=== PATIENT | male | born 1955 | race Caucasian/White ===

== ENCOUNTER 2017-09-24 12:26 | Inpatient (IN) | payer OTHER ==
[2017-09-24 13:56] VITALS: BMI 24.9
--- NOTE | 2017-09-24 14:19 | HP ---
Admission ROS [facility] - [facility] Chief Complaint: i want to go to rehab Allergies/Adverse Reactions: Allergies Allergy/AdvReac Type Severity Reaction Status Date / Time No Known Allergies Allergy Verified 09/24/17 14:32 History of Present Illness: 61 years old male with long history of alcohol dependence last alcohol consumption 08/23/17 (father ) (mother few months ago) and depression is admitted to rehab Exam Limitations: No Limitations - Ebola screening Have you traveled outside of the country in the last 21 days: No Have you had contact with anyone from an Ebola affected area: No Have you been sick,other than usual withdrawal symptoms: No Do you have a fever: No - Review of Systems Constitutional: Loss of Appetite, Unintentional Wgt. Loss, Unexplained wgt Loss EENT: reports: Blurred Vision (eye glasses) Respiratory: reports: SOB with Exertion Cardiac: reports: Other (tia 2016) GI: reports: Poor Fluid Intake, Indigestion : reports: No Symptoms Reported Musculoskeletal: reports: No Symptoms Reported Integumentary: reports: No Symptoms Reported Neuro: reports: No Symptoms reported Endocrine: reports: No Symptoms Reported Hematology: reports: No Symptoms Reported Psychiatric: reports: Judgement Intact, Orientated x3, Anxious, Depressed Other Systems: Reviewed and Negative Patient History - Patient Medical History Hx Anemia: No Hx Asthma: Yes Hx Chronic Obstructive Pulmonary Disease (COPD): Yes Hx Cancer: No Hx Cardiac Disorders: No Hx Congestive Heart Failure: No Hx Hypertension: No Hx Hypercholesterolemia: No Hx Pacemaker: No HX Cerebrovascular Accident: No Hx Seizures: No Hx Dementia: No Hx Diabetes: No Hx Gastrointestinal Disorders: No Hx Liver Disease: No Hx Genitourinary Disorders: No Hx Sexually Transmitted Disorders: No Hx Renal Disease (ESRD): No Hx Thyroid Disease: No Hx Human Immunodeficiency Virus (HIV): No Hx Hepatitis C: Yes Hx Depression: Yes Hx Suicide Attempt: No Hx Bipolar Disorder: No Hx Schizophrenia: No - Patient Surgical History Past Surgical History: Yes Hx Neurologic Surgery: No Hx Cataract Extraction: No Hx Cardiac Surgery: No Hx Lung Surgery: No Hx Breast Surgery: No Hx Breast Biopsy: No Hx Abdominal Surgery: No Hx Appendectomy: No Hx Cholecystectomy: No Hx Genitourinary Surgery: No Hx Orthopedic Surgery: Yes (sacrum 1999) Other Surgical History: right ankle 2006 Anesthesia Reaction: No - PPD History Previous Implant?: Yes Documented Results: Negative w/o proof Implanted On Prior [facility] Admission?: No PPD to be Administered?: Yes - Smoking Cessation Smoking history: Former smoker Have you smoked in the past 12 months: No Hx Chewing Tobacco Use: No Initiated information on smoking cessation: No - Substance & Tx. History Hx Alcohol Use: Yes Hx Substance Use: No Substance Use Type: Alcohol Hx Substance Use Treatment: No - Substances Abused Alcohol Route: Oral Frequency: Daily Amount used: myranda roth Age of first use: 17 Date of Last Use: 08/23/17 Family Disease History - Family Disease History Family Disease History: Heart Disease: Father (), Other: Father, Mother () Admission Physical Exam [facility] - Vital Signs Vital Signs: Vital Signs - 24 hr 09/24/17 13:53 Temperature 96.4 F L Pulse Rate 69 Respiratory 20 Rate Blood Pressure 154/93 - Physical General Appearance: Yes: No Apparent Distress, Appropriately Dressed, Thin HEENTM: Yes: Hearing grossly Normal, Normal ENT Inspection, Normocephalic, Normal Voice Respiratory: Yes: Chest Non-Tender, No Respiratory Distress, No Accessory Muscle Use, Wheezing, Hyperresonant Neck: Yes: Supple, Trachea in good position Breast: Yes: Breasts Symetrical Cardiology: Yes: Within Normal Limits Abdominal: Yes: Non Tender, Soft Genitourinary: Yes: Within Normal Limits Back: Yes: Within Normal Limits, Surgical Scar Musculoskeletal: Yes: full range of Motion, Gait Steady Extremities: Yes: Normal Inspection, Normal Range of Motion, Non-Tender Neurological: Yes: Fully Oriented, Alert, Motor Strength 5/5, Normal Response, Depressed Affect Integumentary: Yes: Warm, Rash (fungal feet) Lymphatic: Yes: Within Normal Limits - Diagnostic (1) Alcohol dependence with uncomplicated withdrawal Current Visit: Yes Status: Acute (2) Hepatitis C Current Visit: Yes Status: Resolved Qualifiers: Viral hepatitis chronicity: unspecified Hepatic coma status: without hepatic coma Qualified Code(s): B19.20 - Unspecified viral hepatitis C without hepatic coma Comment: treated (3) GERD (gastroesophageal reflux disease) Current Visit: Yes Status: Chronic Qualifiers: Esophagitis presence: without esophagitis Qualified Code(s): K21.9 - Gastro -esophageal reflux disease without esophagitis (4) TIA (transient ischemic attack) Current Visit: Yes Status: Resolved Qualifiers: Transient cerebral ischemia type: amaurosis fugax Qualified Code(s): G45.3 - Amaurosis fugax (5) Weight loss Current Visit: Yes Status: Acute (6) Depression (emotion) Current Visit: Yes Status: Suspected Qualifiers: Depression Type: dysthymia Qualified Code(s): F34.1 - Dysthymic disorder (7) Fungal toenail infection Current Visit: Yes Status: Acute (8) Sacral fracture Current Visit: Yes Status: Resolved Qualifiers: Encounter type: sequela Zone of sacrum fracture: unspecified portion of sacrum Fracture type: open Qualified Code(s): S32.10XS - Unspecified fracture of sacrum, sequela (9) Dry skin dermatitis Current Visit: Yes Status: Chronic Cleared for Admission [facility] - Detox or Rehab [facility] Level of Care: Observation Bed Detox Regimen/Protocol: Not Applicable Claeared for Rehab Admission: Yes [facility] Breath Alcohol Content Breath Alcohol Content: 0 Urine Drug Screen - Results Drug Screen Negative: Yes Inpatient Rehab Admission - Initial Determination Are CD services needed?: Yes Free of communicable disease: Yes Not in need of hospitalization: Yes - Rehab Admission Criteria Previous failed treatment: Yes Poor recovery environment: Yes Comorbidities: Yes Lacks judgement: No Patient is meeting Inpatient Rehab admission criteria:: Yes
[2017-09-24] MEDS ORDERED: P-EPHED 60MG/TRIPROLIDI 2.5MG TABLET PO PRN (14:48)
[2017-09-24] MEDS ORDERED: MAGNESIUM CITRATE 300 ML BOTTLE PO PRN (14:48)
[2017-09-24] MEDS ORDERED: MAGNESIUM HYDROX 2400MG/30ML ORAL SUSPENSION 30 ML CUP PO PRN (14:48)
[2017-09-24] MEDS ORDERED: MAG HYDROX/AL HYDROX/SIMETH 30 ML UNIT-DOSE CUP PO PRN (14:48)
[2017-09-24] MEDS ORDERED: MENTHOL/PHENOL 1 EACH UD MM PRN (14:48)
[2017-09-24] MEDS ORDERED: ACETAMINOPHEN 325 MG TABLET (FP) PO PRN (14:48)
[2017-09-24] MEDS ORDERED: guaiFENesin/D-METHORPHAN HB 10 ML UNIT-DOSE CUPS PO PRN (14:48)
[2017-09-24] MEDS ORDERED: LOPERAMIDE HCL 2 MG CAPSULE PO PRN (14:48)
[2017-09-24] MEDS ORDERED: metroNIDAZOLE 0.75% TOPICAL GEL 45 GM TUBE TP SCH (15:00)
[2017-09-24] MEDS ORDERED: TUBERCULIN PPD 5 TU/0.1ML VIAL ID ONE (20:46)
[2017-09-24] MEDS: BUDESONIDE/FORMETEROL FUMARATE 80/4.5 mcg INHALER IH SCH (21:11)
[2017-09-24] MEDS: metroNIDAZOLE 0.75% TOPICAL GEL 45 GM TUBE TP SCH (21:11)
[2017-09-24] MEDS: RANITIDINE HCL 150 MG TABLET (FP) PO SCH (21:12)
[2017-09-24] MEDS: THIAMINE HCL 100 MG TABLET (FP) PO SCH (21:12)
[2017-09-24] MEDS ORDERED: TALC 70.9 GM BTL TP SCH (22:00)
[2017-09-24 23:25] LABS: URINE APPEARANCE CLEAR; URINE BILIRUBIN NEGATIVE (NEGATIVE); URINE BLOOD NEGATIVE (NEGATIVE); URINE COLOR YELLOW; URINE GLUCOSE (UA) NEGATIVE (NEGATIVE); URINE KETONE NEGATIVE (NEGATIVE); URINE LEUK ESTERASE NEGATIVE (NEGATIVE); URINE NITRITE NEGATIVE (NEGATIVE); URINE PROTEIN NEGATIVE (NEGATIVE); URINE UROBILINOGEN NEGATIVE mg/dL (0.2-1.0)
--- NOTE | 2017-09-25 06:22 | HP ---
Psychiatrist Admission - Data Date of interview: 09/25/17 Admission source: Self-referred via a friend Identifying data: This is the first [facility] admission for this 61 years old single [place] male, unemployed on public assistance, homeless Medical History: Significant for COPD, TIA and history of treatment for hepatitis C and orthosurgery for fractures of sacrum in 1999 & right ankle in 2006. Psychiatric History: Denies history of previous psychiatric treatment Physical/Sexual Abuse/Trauma History: Denies history of emotional, physical or sexual abuse as well as DV relationship Additional Comment: Reports history of one preious arrest on charges of DWI in 1995 Vital Signs: Vital Signs - 24 hr 09/24/17 09/25/17 13:53 00:30 Temperature 96.4 F L Pulse Rate 69 Respiratory 20 16 Rate Blood Pressure 154/93 Allergies/Adverse Reactions: Allergies Allergy/AdvReac Type Severity Reaction Status Date / Time No Known Allergies Allergy Verified 09/24/17 14:32 Date of last physical exam: 09/24/17 Concur with the findings of this exam: Yes - Substance Abuse/Tx History Hx Alcohol Use: Yes Hx Substance Use: No Substance Use Type: Alcohol (Started drinking alcohol at age 17, consumes one quart of whiskey(agustin) daily. Last drank on 08/23/17) Hx Substance Use Treatment: No Mental Status Exam - Mental Status Exam Alert and Oriented to: Time, Person Cognitive Function: Fair Patient Appearance: Disheveled Mood: Hopeful, Euthymic Affect: Appropriate Patient Behavior: Cooperative Speech Pattern: Clear Voice Loudness: Normal Thought Process: Intact, Goal Oriented Thought Disorder: Not Present Hallucinations: Denies Suicidal Ideation: Denies Homicidal Ideation: Denies Insight/Judgement: Fair Sleep: Poorly Appetite: Good Muscle strength/Tone: Normal Gait/Station: Normal Psychiatric Findings - Problem List ([place] 1, 2,3) (1) Alcohol dependence Current Visit: Yes Status: Acute (2) Alcohol-induced sleep disorder Current Visit: Yes Status: Acute (3) Fungal toenail infection Current Visit: Yes Status: Acute (4) Dry skin dermatitis Current Visit: Yes Status: Chronic (5) GERD (gastroesophageal reflux disease) Current Visit: Yes Status: Chronic Qualifiers: Esophagitis presence: without esophagitis Qualified Code(s): K21.9 - Gastro -esophageal reflux disease without esophagitis (6) Hepatitis C Current Visit: Yes Status: Resolved Qualifiers: Viral hepatitis chronicity: unspecified Hepatic coma status: without hepatic coma Qualified Code(s): B19.20 - Unspecified viral hepatitis C without hepatic coma Comment: treated (7) Sacral fracture Current Visit: Yes Status: Resolved Qualifiers: Encounter type: sequela Zone of sacrum fracture: unspecified portion of sacrum Fracture type: open Qualified Code(s): S32.10XS - Unspecified fracture of sacrum, sequela (8) TIA (transient ischemic attack) Current Visit: Yes Status: Resolved Qualifiers: Transient cerebral ischemia type: amaurosis fugax Qualified Code(s): G45.3 - Amaurosis fugax - Initial Treatment Plan Initial Treatment Plan: 1) Start Belsomra 10 mg po HS prn for insomnia. 2) Monitor progress
[2017-09-25] MEDS: ASPIRIN COATED 81 MG TABLET.EC PO SCH (09:45)
[2017-09-25] MEDS: RANITIDINE HCL 150 MG TABLET (FP) PO SCH ×2 (09:45→21:18)
[2017-09-25] MEDS: PRENATAL VITAMINS W/ FOLIC ACID TABLET (FP) PO SCH (09:45)
[2017-09-25] MEDS: BUDESONIDE/FORMETEROL FUMARATE 80/4.5 mcg INHALER IH SCH ×2 (09:46→21:18)
[2017-09-25] MEDS: metroNIDAZOLE 0.75% TOPICAL GEL 45 GM TUBE TP SCH (09:46)
[2017-09-25 10:31] LABS: HEMATOCRIT 36.1 % (35.4-49); MCH 31.7 pg (25.7-33.7); MCHC 33.3 g/dl (32.0-35.9); MEAN PLT VOLUME 9.3 fl (7.5-11.1); PLATELET COUNT 261 K/MM3 (134-434); RDW 13.4 % (11.9-15.9); WHITE BLOOD COUNT 4.7 K/mm3 (4.0-10.0)
[2017-09-25 10:33] LABS: CHLORIDE 103 mmol/L (98-107); POTASSIUM 4.2 mmol/L (3.5-5.1); SODIUM 140 mmol/L (136-145)
--- NOTE | 2017-09-25 10:47 | EKG ---
Test Reason : Blood Pressure : / mmHG Vent. Rate : 070 BPM Atrial Rate : 070 BPM P-R Int : 176 ms QRS Dur : 098 ms QT Int : 398 ms P-R-T Axes : 042 061 041 degrees QTc Int : 429 ms NORMAL SINUS RHYTHM NORMAL ECG WHEN COMPARED WITH ECG OF 24-SEP-2017 21:19, T WAVE INVERSION NO LONGER EVIDENT IN ANTERIOR LEADS QT HAS SHORTENED Confirmed by David Charles ([id number]) on 09/25/2017 10:46:47 AM Referred By: Confirmed By:David Charles
[2017-09-25 10:52] LABS: ALBUMIN 3.6 g/dl (3.4-5.0); ALK PHOS 80 U/L (45-117); ANION GAP 9 (8-16); BILIRUBIN,TOTAL 0.4 mg/dL (0.2-1.0); BLOOD UREA NITROGEN 19 mg/dL (7-18); CALCIUM 8.7 mg/dL (8.5-10.1); CO2 28 mmol/L (21-32); GLUCOSE,RANDOM 104 mg/dL (74-106); SGOT/AST 29 U/L (15-37); SGPT/ALT 28 U/L (12-78); TOT PROT 6.2 g/dl (6.4-8.2)
[2017-09-25] MEDS: THIAMINE HCL 100 MG TABLET (FP) PO SCH (21:18)
[2017-09-26] MEDS: ASPIRIN COATED 81 MG TABLET.EC PO SCH (10:28)
[2017-09-26] MEDS: metroNIDAZOLE 0.75% TOPICAL GEL 45 GM TUBE TP SCH (10:28)
[2017-09-26] MEDS: PRENATAL VITAMINS W/ FOLIC ACID TABLET (FP) PO SCH (10:28)
[2017-09-26] MEDS: BUDESONIDE/FORMETEROL FUMARATE 80/4.5 mcg INHALER IH SCH ×2 (10:29→21:13)
[2017-09-26] MEDS: RANITIDINE HCL 150 MG TABLET (FP) PO SCH ×2 (10:29→21:14)
--- NOTE | 2017-09-26 10:55 | EKG ---
Test Reason : Blood Pressure : / mmHG Vent. Rate : 072 BPM Atrial Rate : 072 BPM P-R Int : 176 ms QRS Dur : 102 ms QT Int : 448 ms P-R-T Axes : 090 063 059 degrees QTc Int : 490 ms NORMAL SINUS RHYTHM PROLONGED QT ABNORMAL ECG NO PREVIOUS ECGS AVAILABLE Confirmed by TIFFANIE CHAUHAN, MACY ([id number]) on 09/26/2017 10:54:55 AM Referred By: Confirmed By:MACY MORENO MD
[2017-09-26] MEDS: THIAMINE HCL 100 MG TABLET (FP) PO SCH (21:13)
[2017-09-26] MEDS: SUVOREXANT 10 MG TABLET PO PRN (21:13)
[2017-09-26] MEDS ORDERED: TOLNAFTATE 1% POWDER 45 GM POW TP SCH (22:00)
[2017-09-26] MEDS: TOLNAFTATE 1% CREAM 15 GM TUBE TP SCH (22:25)
[2017-09-27] MEDS: ASPIRIN COATED 81 MG TABLET.EC PO SCH (09:35)
[2017-09-27] MEDS: RANITIDINE HCL 150 MG TABLET (FP) PO SCH ×2 (09:35→21:30)
[2017-09-27] MEDS: PRENATAL VITAMINS W/ FOLIC ACID TABLET (FP) PO SCH (09:35)
[2017-09-27] MEDS: BUDESONIDE/FORMETEROL FUMARATE 80/4.5 mcg INHALER IH SCH ×2 (09:35→21:31)
[2017-09-27] MEDS: metroNIDAZOLE 0.75% TOPICAL GEL 45 GM TUBE TP SCH (09:36)
[2017-09-27] MEDS: TOLNAFTATE 1% CREAM 15 GM TUBE TP SCH ×2 (09:36→21:30)
[2017-09-27] MEDS: THIAMINE HCL 100 MG TABLET (FP) PO SCH (21:30)
[2017-09-28] MEDS: PRENATAL VITAMINS W/ FOLIC ACID TABLET (FP) PO SCH (09:37)
[2017-09-28] MEDS: BUDESONIDE/FORMETEROL FUMARATE 80/4.5 mcg INHALER IH SCH ×2 (09:38→21:17)
[2017-09-28] MEDS: ASPIRIN COATED 81 MG TABLET.EC PO SCH (09:38)
[2017-09-28] MEDS: RANITIDINE HCL 150 MG TABLET (FP) PO SCH ×2 (09:38→21:19)
[2017-09-28] MEDS: metroNIDAZOLE 0.75% TOPICAL GEL 45 GM TUBE TP SCH (09:39)
[2017-09-28] MEDS: TOLNAFTATE 1% CREAM 15 GM TUBE TP SCH ×2 (09:40→21:18)
[2017-09-28] MEDS ORDERED: PT OWN MED DRAWER 7, Y5N ONE ×2 (09:41→19:58)
[2017-09-28] MEDS: THIAMINE HCL 100 MG TABLET (FP) PO SCH (21:19)
[2017-09-28] MEDS: SUVOREXANT 10 MG TABLET PO PRN (21:19)
[2017-09-28] MEDS ORDERED: SUVOREXANT 10 MG TABLET PO PRN (22:00)
[2017-09-29] MEDS ORDERED: PT OWN MED DRAWER 7, Y5N ONE ×2 (08:35→19:12)
[2017-09-29] MEDS: BUDESONIDE/FORMETEROL FUMARATE 80/4.5 mcg INHALER IH SCH ×2 (09:32→21:38)
[2017-09-29] MEDS: RANITIDINE HCL 150 MG TABLET (FP) PO SCH ×2 (09:32→21:38)
[2017-09-29] MEDS: PRENATAL VITAMINS W/ FOLIC ACID TABLET (FP) PO SCH (09:32)
[2017-09-29] MEDS: ASPIRIN COATED 81 MG TABLET.EC PO SCH (09:32)
[2017-09-29] MEDS: TOLNAFTATE 1% CREAM 15 GM TUBE TP SCH ×2 (09:33→21:38)
[2017-09-29] MEDS: metroNIDAZOLE 0.75% TOPICAL GEL 45 GM TUBE TP SCH (09:33)
[2017-09-29] MEDS: THIAMINE HCL 100 MG TABLET (FP) PO SCH (21:38)
[2017-09-30] MEDS ORDERED: PT OWN MED DRAWER 7, Y5N ONE ×2 (08:19→19:05)
[2017-09-30] MEDS: ASPIRIN COATED 81 MG TABLET.EC PO SCH (09:28)
[2017-09-30] MEDS: BUDESONIDE/FORMETEROL FUMARATE 80/4.5 mcg INHALER IH SCH ×2 (09:28→21:44)
[2017-09-30] MEDS: RANITIDINE HCL 150 MG TABLET (FP) PO SCH ×2 (09:28→21:45)
[2017-09-30] MEDS: PRENATAL VITAMINS W/ FOLIC ACID TABLET (FP) PO SCH (09:28)
[2017-09-30] MEDS: TOLNAFTATE 1% CREAM 15 GM TUBE TP SCH ×2 (09:29→21:45)
[2017-09-30] MEDS: metroNIDAZOLE 0.75% TOPICAL GEL 45 GM TUBE TP SCH (09:30)
[2017-09-30] MEDS: THIAMINE HCL 100 MG TABLET (FP) PO SCH (21:45)
[2017-10-01] MEDS: PRENATAL VITAMINS W/ FOLIC ACID TABLET (FP) PO SCH (09:30)
[2017-10-01] MEDS: ASPIRIN COATED 81 MG TABLET.EC PO SCH (09:30)
[2017-10-01] MEDS: RANITIDINE HCL 150 MG TABLET (FP) PO SCH ×2 (09:30→21:40)
[2017-10-01] MEDS: TOLNAFTATE 1% CREAM 15 GM TUBE TP SCH ×2 (09:32→21:39)
[2017-10-01] MEDS: BUDESONIDE/FORMETEROL FUMARATE 80/4.5 mcg INHALER IH SCH ×2 (09:32→21:38)
[2017-10-01] MEDS: metroNIDAZOLE 0.75% TOPICAL GEL 45 GM TUBE TP SCH (09:32)
[2017-10-01] MEDS ORDERED: PT OWN MED DRAWER 7, Y5N ONE ×4 (09:33→22:08)
--- NOTE | 2017-10-01 14:27 | PN ---
S Progress Note Note: Patient requesting Belsomra 10mg PO HS PRN to be discontinued as he does not need it. Medication discontinued. Pt. made aware.
--- NOTE | 2017-10-01 15:01 | PN ---
[facility] Progress Note Note: Patient reports chronic tinea pedis. Patient Aox 3, ambulating in no apparent distress. Plan: Patient advisde to increase fluids and keep skin clean and dry Ciclopirox .77% order, which was prescribed by PCP outpatient Continue to monitor
[2017-10-01] MEDS ORDERED: PATIENT'S OWN MEDICATION (NON-FORMULARY) (Terbinafine Hcl [Lamisil] 250 MG) PO SCH (17:00)
[2017-10-01] MEDS: TOLNAFTATE 1% POWDER 45 GM POW TP SCH (17:31)
[2017-10-01] MEDS: THIAMINE HCL 100 MG TABLET (FP) PO SCH (21:40)
[2017-10-01] MEDS ORDERED: SUVOREXANT 10 MG TABLET PO PRN (22:00)
[2017-10-02] MEDS ORDERED: CICLOPIROX OLAMINE TP SCH (10:00)
[2017-10-02] MEDS: PRENATAL VITAMINS W/ FOLIC ACID TABLET (FP) PO SCH (10:12)
[2017-10-02] MEDS: TOLNAFTATE 1% CREAM 15 GM TUBE TP SCH ×2 (10:13→21:12)
[2017-10-02] MEDS: RANITIDINE HCL 150 MG TABLET (FP) PO SCH ×2 (10:13→21:12)
[2017-10-02] MEDS: BUDESONIDE/FORMETEROL FUMARATE 80/4.5 mcg INHALER IH SCH ×2 (10:13→21:12)
[2017-10-02] MEDS: ASPIRIN COATED 81 MG TABLET.EC PO SCH (10:13)
[2017-10-02] MEDS: metroNIDAZOLE 0.75% TOPICAL GEL 45 GM TUBE TP SCH (10:13)
[2017-10-02] MEDS: TOLNAFTATE 1% POWDER 45 GM POW TP SCH (10:15)
[2017-10-02] MEDS ORDERED: PT OWN MED DRAWER 7, Y5N ONE ×3 (10:16→22:35)
[2017-10-02] MEDS: THIAMINE HCL 100 MG TABLET (FP) PO SCH (21:12)
[2017-10-03] MEDS: RANITIDINE HCL 150 MG TABLET (FP) PO SCH ×2 (09:29→21:04)
[2017-10-03] MEDS: PRENATAL VITAMINS W/ FOLIC ACID TABLET (FP) PO SCH (09:29)
[2017-10-03] MEDS: ASPIRIN COATED 81 MG TABLET.EC PO SCH (09:29)
[2017-10-03] MEDS: TOLNAFTATE 1% CREAM 15 GM TUBE TP SCH ×2 (09:30→21:04)
[2017-10-03] MEDS: BUDESONIDE/FORMETEROL FUMARATE 80/4.5 mcg INHALER IH SCH ×2 (09:30→21:04)
[2017-10-03] MEDS: metroNIDAZOLE 0.75% TOPICAL GEL 45 GM TUBE TP SCH (09:30)
[2017-10-03] MEDS: TOLNAFTATE 1% POWDER 45 GM POW TP SCH (09:31)
[2017-10-03] MEDS ORDERED: PT OWN MED DRAWER 7, Y5N ONE ×2 (09:33→19:04)
[2017-10-03] MEDS: THIAMINE HCL 100 MG TABLET (FP) PO SCH (21:04)
[2017-10-04] MEDS: RANITIDINE HCL 150 MG TABLET (FP) PO SCH ×2 (09:32→21:20)
[2017-10-04] MEDS: ASPIRIN COATED 81 MG TABLET.EC PO SCH (09:32)
[2017-10-04] MEDS: PRENATAL VITAMINS W/ FOLIC ACID TABLET (FP) PO SCH (09:32)
[2017-10-04] MEDS: TOLNAFTATE 1% CREAM 15 GM TUBE TP SCH ×2 (09:33→21:21)
[2017-10-04] MEDS: TOLNAFTATE 1% POWDER 45 GM POW TP SCH (09:33)
[2017-10-04] MEDS: BUDESONIDE/FORMETEROL FUMARATE 80/4.5 mcg INHALER IH SCH ×2 (09:33→21:20)
[2017-10-04] MEDS ORDERED: PT OWN MED DRAWER 7, Y5N ONE ×3 (09:34→22:32)
[2017-10-04] MEDS: metroNIDAZOLE 0.75% TOPICAL GEL 45 GM TUBE TP SCH (09:34)
[2017-10-04] MEDS: THIAMINE HCL 100 MG TABLET (FP) PO SCH (21:20)
[2017-10-05] MEDS ORDERED: PT OWN MED DRAWER 7, Y5N ONE ×3 (08:46→22:01)
[2017-10-05] MEDS: BUDESONIDE/FORMETEROL FUMARATE 80/4.5 mcg INHALER IH SCH ×2 (09:48→21:33)
[2017-10-05] MEDS: TOLNAFTATE 1% CREAM 15 GM TUBE TP SCH ×2 (09:48→21:34)
[2017-10-05] MEDS: ASPIRIN COATED 81 MG TABLET.EC PO SCH (09:49)
[2017-10-05] MEDS: metroNIDAZOLE 0.75% TOPICAL GEL 45 GM TUBE TP SCH (09:49)
[2017-10-05] MEDS: PRENATAL VITAMINS W/ FOLIC ACID TABLET (FP) PO SCH (09:49)
[2017-10-05] MEDS: RANITIDINE HCL 150 MG TABLET (FP) PO SCH ×2 (09:49→21:34)
[2017-10-05] MEDS: TOLNAFTATE 1% POWDER 45 GM POW TP SCH (09:49)
[2017-10-05] MEDS: THIAMINE HCL 100 MG TABLET (FP) PO SCH (21:34)
[2017-10-06] MEDS: RANITIDINE HCL 150 MG TABLET (FP) PO SCH ×2 (09:35→21:05)
[2017-10-06] MEDS: PRENATAL VITAMINS W/ FOLIC ACID TABLET (FP) PO SCH (09:35)
[2017-10-06] MEDS: ASPIRIN COATED 81 MG TABLET.EC PO SCH (09:35)
[2017-10-06] MEDS: BUDESONIDE/FORMETEROL FUMARATE 80/4.5 mcg INHALER IH SCH ×2 (09:36→21:06)
[2017-10-06] MEDS: metroNIDAZOLE 0.75% TOPICAL GEL 45 GM TUBE TP SCH (09:36)
[2017-10-06] MEDS: TOLNAFTATE 1% POWDER 45 GM POW TP SCH (09:37)
[2017-10-06] MEDS: TOLNAFTATE 1% CREAM 15 GM TUBE TP SCH ×2 (09:37→21:06)
[2017-10-06] MEDS ORDERED: PT OWN MED DRAWER 7, Y5N ONE ×2 (09:38→19:35)
[2017-10-06] MEDS: THIAMINE HCL 100 MG TABLET (FP) PO SCH (21:05)
[2017-10-07] MEDS: BUDESONIDE/FORMETEROL FUMARATE 80/4.5 mcg INHALER IH SCH ×2 (09:27→22:18)
[2017-10-07] MEDS: PRENATAL VITAMINS W/ FOLIC ACID TABLET (FP) PO SCH (09:27)
[2017-10-07] MEDS: RANITIDINE HCL 150 MG TABLET (FP) PO SCH ×2 (09:27→22:19)
[2017-10-07] MEDS: ASPIRIN COATED 81 MG TABLET.EC PO SCH (09:27)
[2017-10-07] MEDS: metroNIDAZOLE 0.75% TOPICAL GEL 45 GM TUBE TP SCH (09:28)
[2017-10-07] MEDS: TOLNAFTATE 1% CREAM 15 GM TUBE TP SCH ×2 (09:28→22:21)
[2017-10-07] MEDS ORDERED: PT OWN MED DRAWER 7, Y5N ONE ×4 (09:30→22:32)
[2017-10-07] MEDS: TOLNAFTATE 1% POWDER 45 GM POW TP SCH (09:30)
[2017-10-07] MEDS: THIAMINE HCL 100 MG TABLET (FP) PO SCH (22:19)
[2017-10-08] MEDS: TOLNAFTATE 1% POWDER 45 GM POW TP SCH (09:51)
[2017-10-08] MEDS: metroNIDAZOLE 0.75% TOPICAL GEL 45 GM TUBE TP SCH (09:51)
[2017-10-08] MEDS: BUDESONIDE/FORMETEROL FUMARATE 80/4.5 mcg INHALER IH SCH ×2 (09:51→21:07)
[2017-10-08] MEDS: ASPIRIN COATED 81 MG TABLET.EC PO SCH (09:52)
[2017-10-08] MEDS: RANITIDINE HCL 150 MG TABLET (FP) PO SCH ×2 (09:52→21:08)
[2017-10-08] MEDS: TOLNAFTATE 1% CREAM 15 GM TUBE TP SCH ×2 (09:52→21:07)
[2017-10-08] MEDS: PRENATAL VITAMINS W/ FOLIC ACID TABLET (FP) PO SCH (09:52)
[2017-10-08] MEDS ORDERED: PT OWN MED DRAWER 7, Y5N ONE (19:24)
[2017-10-08] MEDS: THIAMINE HCL 100 MG TABLET (FP) PO SCH (21:08)
[2017-10-09] MEDS ORDERED: PT OWN MED DRAWER 7, Y5N ONE (08:38)
[2017-10-09] MEDS: TOLNAFTATE 1% CREAM 15 GM TUBE TP SCH ×2 (09:31→21:55)
[2017-10-09] MEDS: PRENATAL VITAMINS W/ FOLIC ACID TABLET (FP) PO SCH (09:31)
[2017-10-09] MEDS: ASPIRIN COATED 81 MG TABLET.EC PO SCH (09:31)
[2017-10-09] MEDS: BUDESONIDE/FORMETEROL FUMARATE 80/4.5 mcg INHALER IH SCH ×2 (09:31→21:55)
[2017-10-09] MEDS: TOLNAFTATE 1% POWDER 45 GM POW TP SCH (09:31)
[2017-10-09] MEDS: RANITIDINE HCL 150 MG TABLET (FP) PO SCH ×2 (09:32→21:56)
[2017-10-09] MEDS: metroNIDAZOLE 0.75% TOPICAL GEL 45 GM TUBE TP SCH (09:32)
[2017-10-09] MEDS: THIAMINE HCL 100 MG TABLET (FP) PO SCH (21:55)
[2017-10-10] MEDS: ASPIRIN COATED 81 MG TABLET.EC PO SCH (09:45)
[2017-10-10] MEDS: TOLNAFTATE 1% CREAM 15 GM TUBE TP SCH ×2 (09:45→21:08)
[2017-10-10] MEDS: PRENATAL VITAMINS W/ FOLIC ACID TABLET (FP) PO SCH (09:45)
[2017-10-10] MEDS: metroNIDAZOLE 0.75% TOPICAL GEL 45 GM TUBE TP SCH (09:45)
[2017-10-10] MEDS: TOLNAFTATE 1% POWDER 45 GM POW TP SCH (09:46)
[2017-10-10] MEDS: BUDESONIDE/FORMETEROL FUMARATE 80/4.5 mcg INHALER IH SCH ×2 (09:46→21:06)
[2017-10-10] MEDS: RANITIDINE HCL 150 MG TABLET (FP) PO SCH ×2 (09:46→21:09)
[2017-10-10] MEDS ORDERED: PANTOPRAZOLE 40 MG TABLET (FP) PO SCH (16:00)
[2017-10-10] MEDS: GABAPENTIN 100 MG CAPSULE (FP) PO SCH ×2 (17:02→21:33)
[2017-10-10] MEDS: THIAMINE HCL 100 MG TABLET (FP) PO SCH (21:09)
[2017-10-10] MEDS: NAPROXEN 500 MG TABLET (FP) PO SCH (21:10)
[2017-10-10] MEDS ORDERED: AMITRIPTYLINE HCL 25 MG TABLET (FP) PO SCH (22:00)
[2017-10-11] MEDS: GABAPENTIN 100 MG CAPSULE (FP) PO SCH (06:38)
[2017-10-11] MEDS: RANITIDINE HCL 150 MG TABLET (FP) PO SCH ×2 (09:27→21:59)
[2017-10-11] MEDS: NAPROXEN 500 MG TABLET (FP) PO SCH (09:27)
[2017-10-11] MEDS: TOLNAFTATE 1% CREAM 15 GM TUBE TP SCH ×2 (09:27→22:00)
[2017-10-11] MEDS: BUDESONIDE/FORMETEROL FUMARATE 80/4.5 mcg INHALER IH SCH ×2 (09:27→22:00)
[2017-10-11] MEDS: PRENATAL VITAMINS W/ FOLIC ACID TABLET (FP) PO SCH (09:27)
[2017-10-11] MEDS: ASPIRIN COATED 81 MG TABLET.EC PO SCH (09:27)
[2017-10-11] MEDS: TOLNAFTATE 1% POWDER 45 GM POW TP SCH (09:27)
[2017-10-11] MEDS: metroNIDAZOLE 0.75% TOPICAL GEL 45 GM TUBE TP SCH (09:28)
[2017-10-11] MEDS ORDERED: NAPROXEN 500 MG TABLET (FP) PO PRN (13:50)
--- NOTE | 2017-10-11 13:53 | PN ---
[facility] Progress Note (SOAP) Subjective: sharp stabbing left shoulder pain, does not want to take neuropathic medication. not chroniic only occurs occasionally Objective: 10/11/17 13:52 Vital Signs - 24 hr 10/11/17 10/11/17 10/11/17 00:30 03:30 06:46 Temperature 97.3 F L Pulse Rate 64 Respiratory 20 18 18 Rate Blood Pressure 150/88 Laboratory Tests 09/24/17 09/25/17 09/25/17 23:05 05:50 05:50 WBC 4.7 RBC 3.80 L Hgb 12.0 Hct 36.1 MCV 95.0 MCH 31.7 MCHC 33.3 RDW 13.4 Plt Count 261 MPV 9.3 Sodium 140 Potassium 4.2 Chloride 103 Carbon Dioxide 28 Anion Gap 9 BUN 19 H Creatinine 1.0 Creat Clearance w eGFR > 60 Random Glucose 104 Calcium 8.7 Total Bilirubin 0.4 AST 29 ALT 28 Alkaline Phosphatase 80 Total Protein 6.2 L Albumin 3.6 Urine Color Yellow Urine Appearance Clear Urine pH 6.0 Ur Specific [place] 1.019 Urine Protein Negative Urine Glucose (UA) Negative Urine Ketones Negative Urine Blood Negative Urine Nitrite Negative Urine Bilirubin Negative Urine Urobilinogen Negative Ur Leukocyte Esterase Negative RPR Titer HIV 1&2 Antibody Screen HIV P24 Antigen 09/25/17 09/25/17 05:50 05:50 WBC RBC Hgb Hct MCV MCH MCHC RDW Plt Count MPV Sodium Potassium Chloride Carbon Dioxide Anion Gap BUN Creatinine Creat Clearance w eGFR Random Glucose Calcium Total Bilirubin AST ALT Alkaline Phosphatase Total Protein Albumin Urine Color Urine Appearance Urine pH Ur Specific [place] Urine Protein Urine Glucose (UA) Urine Ketones Urine Blood Urine Nitrite Urine Bilirubin Urine Urobilinogen Ur Leukocyte Esterase RPR Titer Nonreactive HIV 1&2 Antibody Screen Negative HIV P24 Antigen Negative Assessment: 10/11/17 13:52 neuropathic l shoulder pain - agress to take prn naprosyn as needed, h/o sacral fx and tia.
[2017-10-11] MEDS: THIAMINE HCL 100 MG TABLET (FP) PO SCH (21:59)
[2017-10-12] MEDS: PRENATAL VITAMINS W/ FOLIC ACID TABLET (FP) PO SCH (09:36)
[2017-10-12] MEDS: RANITIDINE HCL 150 MG TABLET (FP) PO SCH ×2 (09:36→21:17)
[2017-10-12] MEDS: ASPIRIN COATED 81 MG TABLET.EC PO SCH (09:36)
[2017-10-12] MEDS: metroNIDAZOLE 0.75% TOPICAL GEL 45 GM TUBE TP SCH (09:36)
[2017-10-12] MEDS: TOLNAFTATE 1% CREAM 15 GM TUBE TP SCH ×2 (09:36→21:18)
[2017-10-12] MEDS: TOLNAFTATE 1% POWDER 45 GM POW TP SCH (09:36)
[2017-10-12] MEDS: BUDESONIDE/FORMETEROL FUMARATE 80/4.5 mcg INHALER IH SCH ×2 (09:36→21:18)
[2017-10-12] MEDS: THIAMINE HCL 100 MG TABLET (FP) PO SCH (21:17)
[2017-10-12] MEDS ORDERED: PT OWN MED DRAWER 7, Y5N ONE (22:03)
[2017-10-13] MEDS: metroNIDAZOLE 0.75% TOPICAL GEL 45 GM TUBE TP SCH (10:09)
[2017-10-13] MEDS: TOLNAFTATE 1% CREAM 15 GM TUBE TP SCH ×2 (10:09→21:27)
[2017-10-13] MEDS: ASPIRIN COATED 81 MG TABLET.EC PO SCH (10:09)
[2017-10-13] MEDS: TOLNAFTATE 1% POWDER 45 GM POW TP SCH (10:09)
[2017-10-13] MEDS: PRENATAL VITAMINS W/ FOLIC ACID TABLET (FP) PO SCH (10:09)
[2017-10-13] MEDS: BUDESONIDE/FORMETEROL FUMARATE 80/4.5 mcg INHALER IH SCH ×2 (10:09→21:26)
[2017-10-13] MEDS: RANITIDINE HCL 150 MG TABLET (FP) PO SCH ×2 (10:09→21:26)
[2017-10-13] MEDS ORDERED: PT OWN MED DRAWER 7, Y5N ONE (19:23)
[2017-10-13] MEDS: THIAMINE HCL 100 MG TABLET (FP) PO SCH (21:26)
[2017-10-14] MEDS ORDERED: PT OWN MED DRAWER 7, Y5N ONE ×2 (08:37→21:59)
[2017-10-14] MEDS: BUDESONIDE/FORMETEROL FUMARATE 80/4.5 mcg INHALER IH SCH ×2 (10:09→21:56)
[2017-10-14] MEDS: metroNIDAZOLE 0.75% TOPICAL GEL 45 GM TUBE TP SCH (10:09)
[2017-10-14] MEDS: TOLNAFTATE 1% POWDER 45 GM POW TP SCH (10:10)
[2017-10-14] MEDS: TOLNAFTATE 1% CREAM 15 GM TUBE TP SCH ×2 (10:10→21:58)
[2017-10-14] MEDS: ASPIRIN COATED 81 MG TABLET.EC PO SCH (10:11)
[2017-10-14] MEDS: RANITIDINE HCL 150 MG TABLET (FP) PO SCH ×2 (10:11→21:56)
[2017-10-14] MEDS: PRENATAL VITAMINS W/ FOLIC ACID TABLET (FP) PO SCH (10:11)
[2017-10-14] MEDS: THIAMINE HCL 100 MG TABLET (FP) PO SCH (21:56)
[2017-10-15] MEDS: ASPIRIN COATED 81 MG TABLET.EC PO SCH (10:02)
[2017-10-15] MEDS: PRENATAL VITAMINS W/ FOLIC ACID TABLET (FP) PO SCH (10:02)
[2017-10-15] MEDS: RANITIDINE HCL 150 MG TABLET (FP) PO SCH ×2 (10:03→21:38)
[2017-10-15] MEDS ORDERED: PT OWN MED DRAWER 7, Y5N ONE (10:04)
[2017-10-15] MEDS: BUDESONIDE/FORMETEROL FUMARATE 80/4.5 mcg INHALER IH SCH ×2 (10:04→21:38)
[2017-10-15] MEDS: metroNIDAZOLE 0.75% TOPICAL GEL 45 GM TUBE TP SCH (10:05)
[2017-10-15] MEDS: TOLNAFTATE 1% POWDER 45 GM POW TP SCH (10:05)
[2017-10-15] MEDS: TOLNAFTATE 1% CREAM 15 GM TUBE TP SCH ×2 (10:05→21:37)
[2017-10-15] MEDS: THIAMINE HCL 100 MG TABLET (FP) PO SCH (21:37)
[2017-10-16] MEDS: ASPIRIN COATED 81 MG TABLET.EC PO SCH (10:08)
[2017-10-16] MEDS: BUDESONIDE/FORMETEROL FUMARATE 80/4.5 mcg INHALER IH SCH ×2 (10:08→21:55)
[2017-10-16] MEDS: PRENATAL VITAMINS W/ FOLIC ACID TABLET (FP) PO SCH (10:08)
[2017-10-16] MEDS: TOLNAFTATE 1% CREAM 15 GM TUBE TP SCH ×2 (10:09→21:55)
[2017-10-16] MEDS: metroNIDAZOLE 0.75% TOPICAL GEL 45 GM TUBE TP SCH (10:09)
[2017-10-16] MEDS: TOLNAFTATE 1% POWDER 45 GM POW TP SCH (10:09)
[2017-10-16] MEDS: RANITIDINE HCL 150 MG TABLET (FP) PO SCH ×2 (10:09→21:55)
--- NOTE | 2017-10-16 14:55 | PN ---
Psychiatric Progress Note Vital Signs: Vital Signs Period Temp Pulse Resp BP Sys/[place] Pulse Ox Last 24 Hr 96.7 F 62 16-16 143/83 Date of Session: 10/16/17 Chief Complaint:: Discharge Note HPI: Patient addressing Alcohol Dependence comorbid with Alcohol-Induced Sleep Disorder ROS: GERD, Hep C, Dry skin dermatitis, Fungal toe ifection, H/O TIA Current Medications: Active Medications Generic Name Dose Route Start Last Admin Trade Name Freq PRN Reason Stop Dose Admin Acetaminophen 650 mg 09/24/17 14:48 Tylenol - PO Q4H PRN FEVER Al Hydroxide/Mg Hydroxide 30 ml 09/24/17 14:48 Mylanta Oral Suspension - PO Q6H PRN DYSPEPSIA Aspirin 81 mg 09/25/17 10:00 10/16/17 10:08 Ecotrin - PO 81 mg DAILY AMY Administration Budesonide/Formoterol Fumarate 1 puff 09/24/17 22:00 10/16/17 10:08 Symbicort 80/4.5mcg - IH 1 puff BID MAY Administration Eucalyptus/Menthol/Phenol/Sorbitol 1 each 09/24/17 14:48 Cepastat Lozenge - MM Q4H PRN SORE THROAT Guaifenesin 10 ml 09/24/17 14:48 Robitussin Dm - PO Q6H PRN COUGH Loperamide HCl 4 mg 09/24/17 14:48 Imodium - PO Q6H PRN DIARRHEA Magnesium Citrate 300 ml 09/24/17 14:48 Citroma - PO Q48H PRN CONSTIPATION Magnesium Hydroxide 30 ml 09/24/17 14:48 Milk Of Magnesia - PO DAILY PRN CONSTIPATION Metronidazole 1 applic 09/24/17 19:00 10/16/17 10:09 Metrogel 0.75% Gel - TP 1 applic DAILY AMY Administration Naproxen 500 mg 10/11/17 13:50 Naprosyn - PO BID PRN PAIN LEVEL 6-10 Multivit/Folic Acid/Iron 1 tab 09/25/17 10:00 10/16/17 10:08 Vitamins ([facility]) - PO 1 tab DAILY AMY Administration Pseudoephedrine/Triprolidine 1 combo 09/24/17 14:48 Actifed - PO TID PRN NASAL CONGESTION Ranitidine HCl 150 mg 09/24/17 22:00 10/16/17 10:09 Zantac - PO 150 mg BID AMY Administration Thiamine HCl 100 mg 09/24/17 22:00 10/15/17 21:37 Vitamin B1 - PO 100 mg HS AMY Administration Tolnaftate 1 applic 09/26/17 22:00 10/16/17 10:09 Tinactin 1% Cream - TP 1 applic BID AMY Administration Tolnaftate 1 applic 10/01/17 17:00 10/16/17 10:09 Tinactin 1% Powder - TP 1 applic DAILY AMY Administration Current Side Effect: No Lab tests ordered: Yes Lab tests reviewed: Yes Provider note:: Patient will complete this program on 10/17/17. He has met his treatment goals and will continue to address his issues in intermediate frame tender residential treatment at [facility]. Told marketing copywriter that from his participation in this program, he has learned to identify his triggers and better ways to manage them. He is stable for discharge on 10/17/17 Total face to face time:: 35 Mental Status Exam - Mental Status Exam Alert and Oriented to: Time, Place, Person Cognitive Function: Fair Mood: Hopeful, Euthymic Affect: Appropriate Patient Behavior: Cooperative Speech Pattern: Clear Voice Loudness: Normal Thought Process: Intact, Goal Oriented Thought Disorder: Not Present Suicidal Ideation: Denies Homicidal Ideation: Denies Insight/Judgement: Fair Sleep: Well Appetite: Good Muscle strength/Tone: Normal Gait/Station: Normal Psychiatric Treatment Plan - Problem List (1) Alcohol dependence Current Visit: Yes (2) Alcohol-induced sleep disorder Current Visit: Yes (3) Fungal toenail infection Current Visit: Yes (4) Dry skin dermatitis Current Visit: Yes (5) GERD (gastroesophageal reflux disease) Current Visit: Yes Qualifiers: Esophagitis presence: without esophagitis Qualified Code(s): K21.9 - Gastro -esophageal reflux disease without esophagitis (6) Hepatitis C Current Visit: Yes Qualifiers: Viral hepatitis chronicity: unspecified Hepatic coma status: without hepatic coma Qualified Code(s): B19.20 - Unspecified viral hepatitis C without hepatic coma Comment: treated (7) Sacral fracture Current Visit: Yes Qualifiers: Encounter type: sequela Zone of sacrum fracture: unspecified portion of sacrum Fracture type: open Qualified Code(s): S32.10XS - Unspecified fracture of sacrum, sequela (8) TIA (transient ischemic attack) Current Visit: Yes Qualifiers: Transient cerebral ischemia type: amaurosis fugax Qualified Code(s): G45.3 - Amaurosis fugax Initial treatment plan: Patient will be discharged tomorrow and referred to [facility] for intermediate frame tender residential treatment
[2017-10-16] MEDS: THIAMINE HCL 100 MG TABLET (FP) PO SCH (21:55)
[2017-10-17 07:42] VITALS: BP 153/100; PULSE 59; TEMP 96.1
[2017-10-17] MEDS ORDERED: ALBUTEROL SO4 18 GM HFA INHALER IH PRN (08:36)
[2017-10-17] MEDS: TOLNAFTATE 1% CREAM 15 GM TUBE TP SCH (09:44)
[2017-10-17] MEDS: BUDESONIDE/FORMETEROL FUMARATE 80/4.5 mcg INHALER IH SCH (09:44)
[2017-10-17] MEDS: ASPIRIN COATED 81 MG TABLET.EC PO SCH (09:45)
[2017-10-17] MEDS: TOLNAFTATE 1% POWDER 45 GM POW TP SCH (09:45)
[2017-10-17] MEDS: PRENATAL VITAMINS W/ FOLIC ACID TABLET (FP) PO SCH (09:45)
[2017-10-17] MEDS: RANITIDINE HCL 150 MG TABLET (FP) PO SCH (09:45)
[2017-10-17] MEDS: metroNIDAZOLE 0.75% TOPICAL GEL 45 GM TUBE TP SCH (09:45)
== END 2017-10-17 10:33 | disposition home or self-care (01) | DRG 58 ==
LOC: YASAS 12:26 → Y3W 17:02
PROVIDERS: ADMIT Psychiatry & Neurology Psychiatry; ATTEND Psychiatry & Neurology Psychiatry
PROC: HZ42ZZZ Group Counseling for Substance Abuse Treatment, Cognitive-Behavioral (ICD-10-PCS; principal; 2017-09-24)
DX: F10.282 Alcohol dependence with alcohol-induced sleep disorder (principal); F34.1 Dysthymic disorder; K21.9 Gastro-esophageal reflux disease without esophagitis; L85.3 Xerosis cutis; B19.20 Unspecified viral hepatitis C without hepatic coma; B35.1 Tinea unguium; M79.2 Neuralgia and neuritis, unspecified; J45.909 Unspecified asthma, uncomplicated; J44.9 Chronic obstructive pulmonary disease, unspecified; Z86.73 Personal history of transient ischemic attack (TIA), and cerebral infarction without residual deficits; Z87.891 Personal history of nicotine dependence; Z87.898 Personal history of other specified conditions
CPT/HCPCS: 36415; 80053; 81003; 85027; 86593; 87389; 93005; 93010